=== PATIENT | male | born 1945 | race African-American/Black ===

== ENCOUNTER 2024-04-11 09:32 | Emergency (ER) | payer OTHER ==
[~2024-04-11] VITALS: Ht 182.9 cm; Wt 109.0 kg
[2024-04-11 09:34] VITALS: O2SAT 99
[2024-04-11 10:33] LABS: BASOPHILS % 0.8 % (0.0-2.0); EOSINOPHILS % 4.9 % (0.0-5.0); HEMATOCRIT. 28.8 % (42.0-52.0); HEMOGLOBIN. 9.4 g/dL (14.0-18.0); LYMPHOCYTES % 13.5 % (20.0-50.0); MEAN CORPUSCULAR HEMOGLOBIN 26.8 pg (28.0-32.0); MEAN CORPUSCULAR HGB CONC 32.8 g/dL (31.0-37.0); MEAN CORPUSCULAR VOLUME 81.7 fL (80.0-94.0); MEAN PLATELET VOLUME 8.1 fl (7.4-10.4); NEUTROPHILS % 73.8 % (40.0-76.0); PLATELET 399 x1000/uL (130-400); RED BLOOD CELL COUNT 3.52 mill/uL (4.7-6.1); RED CELL DISTRIBUTION WIDTH 14.8 % (11.6-14.6); WHITE BLOOD COUNT 7.5 x1000/uL (4.5-11.0)
[2024-04-11 10:36] LABS: CHLORIDE 102 mEq/L (98-107); SODIUM 134 mEq/L (136-145)
[2024-04-11 10:37] LABS: CARBON DIOXIDE 26 mEq/L (21-32)
[2024-04-11 10:38] LABS: CALCIUM 9.5 mg/dL (8.7-10.4)
[2024-04-11 10:42] LABS: CREATININE 3.7 mg/dL (0.6-1.3); GLUCOSE 112 mg/dL (70-105); UREA NITROGEN BLOOD 63 mg/dL (9-23)
[2024-04-11 10:43] LABS: TROPONIN I HIGH SENSITIVITY 4 ng/L (3.0-53)
[2024-04-11 10:54] LABS: ETHANOL BLOOD < 10 mg/dL (<10)
[2024-04-11 12:51] VITALS: BP 127/65; PULSE 62; RESP 15; TEMP 36.66960; O2SAT 99
== END 2024-04-11 12:52 | disposition home or self-care (01) ==
LOC: ER 09:49
DX: E16.2 Hypoglycemia, unspecified (principal); E11.9 Type 2 diabetes mellitus without complications; I10 Essential (primary) hypertension; Z88.8 Allergy status to other drugs, medicaments and biological substances; Z96.653 Presence of artificial knee joint, bilateral
CPT/HCPCS: 36415; 71045; 80048; 80320; 82962; 84484; 85025; 99284; G0480